=== PATIENT | male | born 1940 | race American Indian/Alaskan Native ===

== ENCOUNTER 2018-04-07 23:34 | Emergency (ER) | payer MEDICARE ==
--- NOTE | 2018-04-08 00:06 | Emergency Department Report ---
HPI - General Chief Complaint: Altered Mental Status Time Seen by Provider: 04/08/18 00:00 - HPI HPI: 77-year-old male presents to the emergency department by EMS for some altered mental status or possibly intoxication. The patient does appear altered but is arousable and admits to drinking "a couple of beers." However he is currently a poor historian. There is some report that the patient appeared not to be breathing and that he had some low oxygen of about 80 prior to getting supplemental oxygen for EMS. He appears to have some history of diabetes and his blood sugar was 122 in route with EMS. ED Past Medical Hx - Past Medical History Previous Medical History?: No - Surgical History Past Surgical History?: No - Social History Smoking Status: Never Smoker Substance Use Type: Alcohol - Medications Home Medications: Home Medications Medication Instructions Recorded Confirmed Last Taken Type No Known Home Medications [No 04/08/18 04/08/18 Unknown History Reported Home Medications] ED Review of Systems ROS: Stated complaint: LILY Other details as noted in HPI Comment: Unobtainable due to pts medical conditions Physical Exam - Physical Exam Vital Signs: Vital Signs 04/07/18 04/07/18 04/07/18 23:43 23:44 23:46 Temperature Pulse Rate 83 82 79 Respiratory 26 H 14 18 Rate Blood Pressure 108/56 Blood Pressure [Left] O2 Sat by Pulse 90 90 97 Oximetry 04/07/18 04/07/18 04/07/18 23:47 23:48 23:50 Temperature 97.8 F Pulse Rate 79 79 77 Respiratory 10 L 13 15 Rate Blood Pressure 108/56 108/56 Blood Pressure 108/56 [Left] O2 Sat by Pulse 97 97 97 Oximetry 04/07/18 23:53 Temperature Pulse Rate Respiratory 20 Rate Blood Pressure Blood Pressure [Left] O2 Sat by Pulse 97 Oximetry Physical Exam: GENERAL: The patient is well-developed well-nourished. HENT: Normocephalic. Atraumatic. Patient has moist mucous membranes. EYES: Extraocular motions are intact. Pupils equal reactive to light bilaterally. NECK: Supple. Trachea is midline. CHEST/LUNGS: Clear to auscultation. There is no respiratory distress noted. HEART/CARDIOVASCULAR: Regular. There is no tachycardia. There is no murmur. ABDOMEN: Abdomen is soft, nontender. Patient has normal bowel sounds. There is no abdominal distention. SKIN: Skin is warm and dry. NEURO: The patient is awake, alert but does appear intoxicated. The patient is cooperative. The patient has no focal neurologic deficits. The patient has normal speech. MUSCULOSKELETAL: There is no tenderness or deformity. There is no limitation range of motion. There is no evidence of acute injury. ED Course Vital Signs 04/07/18 04/07/18 04/07/18 23:43 23:44 23:46 Temperature Pulse Rate 83 82 79 Respiratory 26 H 14 18 Rate Blood Pressure 108/56 Blood Pressure [Left] O2 Sat by Pulse 90 90 97 Oximetry 04/07/18 04/07/18 04/07/18 23:47 23:48 23:50 Temperature 97.8 F Pulse Rate 79 79 77 Respiratory 10 L 13 15 Rate Blood Pressure 108/56 108/56 Blood Pressure 108/56 [Left] O2 Sat by Pulse 97 97 97 Oximetry 04/07/18 23:53 Temperature Pulse Rate Respiratory 20 Rate Blood Pressure Blood Pressure [Left] O2 Sat by Pulse 97 Oximetry ED Medical Decision Making - Lab Data Result diagrams: 04/08/18 00:16 04/08/18 00:16 - EKG Data -: EKG Interpreted by Me EKG shows normal: sinus rhythm, axis, intervals, QRS complexes, ST-T waves Rate: normal - EKG Data When compared to previous EKG there are: previous EKG unavailable Interpretation: normal EKG - Radiology Data Radiology results: report reviewed CT of the head does not show any acute intracranial process including no ischemia, shift, mass, bleeding or skull fracture. - Medical Decision Making This 77-year-old patient presented after he appeared unresponsive with possibly some breathing issues but overall he was very intoxicated secondary to alcohol abuse with a blood level of 0.31. I reevaluated and monitored this patient throughout my entire shift and the patient remained awake and oriented, however the patient had a Pelayo catheter placed at the beginning of his visit without much complaint. Overall he appears to have at least 1700 mL of urine. Most of his labs were mostly unremarkable except for the blood alcohol level, positive benzodiazepines on the urine drug screen and possibly some signs of mild dehydration. In the morning, the patient's daughter came to bedside and stated her concern for the fact that the patient continuously abuses alcohol and that he has had an overall decline in his health and mentation. I spoke with the daughter and told her that I would give him an evaluation from [facility] but that if the patient does not want help or detox and we cannot make him do so and he has not a criteria for 1012 or 2012. I left my shift after presenting the patient to my colleague for continued monitoring and with the patient be set up for an evaluation by [facility]. Looking at the notes now, it appears that the patient was seen by [facility] but refuses detox help. He was awake and alert and not intoxicated when his daughter came to get him in late afternoon early evening. Critical Care Time: No Critical care attestation.: If time is entered above; I have spent that time in minutes in the direct care of this critically ill patient, excluding procedure time. ED Disposition Clinical Impression: Alcohol abuse Alcohol intoxication Qualifiers: Complication of substance-induced condition: uncomplicated Qualified Code(s): F10.920 - Alcohol use, unspecified with intoxication, uncomplicated Disposition: DC-01 TO HOME OR SELFCARE Is pt being admited?: No Condition: Stable Instructions: Alcohol Intoxication (ED), Abuse of Alcohol (ED) Additional Instructions: Please try and quit drinking. I have given him some referrals to help with your addictions. Return to the emergency Department with any worsening of your symptoms or any acute distress. Referrals: [facility] [Outside] - 3-5 Days [facility] [Outside] - 3-5 Days Time of Disposition: 06:35
[2018-04-08 00:50] LABS: Basophils % (Auto) 0.5 % (0.0-1.8); Eosinophils # (Auto) 0.1 K/mm3 (0.0-0.4); Eosinophils % (Auto) 0.7 % (0.0-4.3); Hematocrit 33.6 % (35.5-45.6); Hemoglobin 10.7 gm/dl (11.8-15.2); Lymphocytes # (Auto) 2.8 K/mm3 (1.2-5.4); Lymphocytes % (Auto) 36.2 % (13.4-35.0); Mean Corpuscular HGB Conc 32 % (32-34); Mean Corpuscular Hemoglobin 32 pg (28-32); Mean Corpuscular Volume 101 fl (84-94); Monocytes # (Auto) 0.5 K/mm3 (0.0-0.8); Monocytes % (Auto) 5.8 % (0.0-7.3); Platelet Count 356 K/mm3 (140-440); Red Blood Count 3.34 M/mm3 (3.65-5.03)
[2018-04-08 01:01] LABS: Amorphous Crystals,Urine 1+; Bilirubin,Urine NEG (Negative); Blood,Urine NEG (Negative); Color,Urine Yellow (Yellow); Hyaline Casts,Urine 14 /LPF; Mucus,Urine FEW /HPF; Protein,Urine <15 mg/dL mg/dL (Negative); RBC,Urine < 1.0 /HPF (0.0-6.0); Urobilinogen,Urine < 2.0 mg/dL (<2.0)
[2018-04-08 01:08] LABS: Alanine Aminotransferase 15 units/L (7-56); Albumin 3.1 g/dL (3.9-5); BUN/Creatinine Ratio 8; Blood Urea Nitrogen 7 mg/dL (9-20); Calcium 7.9 mg/dL (8.4-10.2); Hemolysis Index 3
[2018-04-08 01:08] LABS: Amphetamine Screen,Urine PRESUMPTIVE NEGATIVE; Cannabinoid Screen,Urine PRESUMPTIVE NEGATIVE; Cocaine Screen,Urine PRESUMPTIVE NEGATIVE; Methadone Screen,Urine PRESUMPTIVE NEGATIVE; Opiate Screen,Urine PRESUMPTIVE NEGATIVE
[2018-04-08 01:21] LABS: Benzodiazepines Screen,Urine PRESUMPTIVE POSITIVE
[2018-04-08] MEDS: 1: FOLVITE 1 MG, INFUVITE 10 ML, VITAMIN B-1 100 MG in NACL 0.9% 1000 ML 988.8 ML 2: NA IV SCH ×3 (02:54→18:56)
[2018-04-08] MEDS ORDERED: TYLENOL ONE (11:41)
[2018-04-08] MEDS ORDERED: TYLENOL PO PRN (11:57)
[2018-04-08] MEDS ORDERED: ATIVAN PO ONE (14:59)
[2018-04-08 19:18] VITALS: BP 152/75
--- NOTE | 2018-04-11 14:22 | XRay Report ---
FINAL REPORT PROCEDURE: XR CHEST 1V AP TECHNIQUE: Chest radiograph anteroposterior view. CPT 42177 HISTORY: SOB COMPARISON: No prior studies are available for comparison. FINDINGS: Heart: Normal. Mediastinum/Vessels: Normal. Lungs/Pleural space: There are no infiltrates, effusions or pneumothoraces.. Bony thorax: No acute osseous abnormality. Life support devices: None. IMPRESSION: No acute cardiopulmonary abnormality.
--- NOTE | 2018-04-11 14:23 | Cat Scan Report ---
FINAL REPORT PROCEDURE: CT HEAD/BRAIN WO CON TECHNIQUE: Computerized tomography of the head was performed without contrast material. HISTORY: AMS COMPARISON: No prior studies are available for comparison. FINDINGS: Skull and scalp: Normal. Paranasal sinuses: Normal. Ventricles and subarachnoid spaces: There is moderate central and cortical atrophy. There is no hydrocephalus.. Cerebrum: No evidence of hemorrhage, acute infarction or mass. There is chronic deep white matter ischemic gliosis. Cerebellum and brainstem: No evidence of hemorrhage, acute infarction or mass. Vasculature: Normal. Comments: None. IMPRESSION: There is no hemorrhage, edema, mass, mass effect or midline shift.
== END 2018-04-08 19:19 | disposition home or self-care (01) ==
LOC: ED 23:34
DX: F10.10 Alcohol abuse, uncomplicated (principal)
CPT/HCPCS: 36415; 51702; 70450; 71045; 80053; 80307; 81001; 83880; 84443; 84484; 85025; 93005; 93010; 96365; 96366; 99285; G0480; J3411; J7030; 80320

== ENCOUNTER 2018-04-15 17:34 | Emergency (ER) | payer MEDICARE ==
[2018-04-15] MEDS ORDERED: ASPIRIN ONE (18:14)
[2018-04-15] MEDS ORDERED: ASPIRIN PO ONE (18:15)
[2018-04-15 18:49] LABS: Basophils # (Auto) 0.1 K/mm3 (0.0-0.1); Basophils % (Auto) 0.8 % (0.0-1.8); Eosinophils # (Auto) 0.1 K/mm3 (0.0-0.4); Eosinophils % (Auto) 1.4 % (0.0-4.3); Hematocrit 34.7 % (35.5-45.6); Lymphocytes # (Auto) 2.5 K/mm3 (1.2-5.4); Lymphocytes % (Auto) 32.8 % (13.4-35.0); Mean Corpuscular HGB Conc 32 % (32-34); Mean Corpuscular Hemoglobin 32 pg (28-32); Mean Corpuscular Volume 101 fl (84-94); Monocytes # (Auto) 0.7 K/mm3 (0.0-0.8); Monocytes % (Auto) 8.4 % (0.0-7.3); Platelet Count 298 K/mm3 (140-440); Red Blood Count 3.44 M/mm3 (3.65-5.03); Red Cell Distribution Width 16.8 % (13.2-15.2)
[2018-04-15 19:06] LABS: BUN/Creatinine Ratio 8; Blood Urea Nitrogen 7 mg/dL (9-20); Calcium 8.3 mg/dL (8.4-10.2); Hemolysis Index 7
--- NOTE | 2018-04-15 21:33 | Emergency Department Report ---
HPI - General Chief Complaint: Chest Pain Time Seen by Provider: 04/15/18 21:19 - HPI HPI: Room 26 The patient is a 77-year-old male presenting with a chief complaint of diarrhea and chest pain. The patient states for one week she has had frequent diarrhea with lower abdominal pain. The patient states he uses food and drinks water and it feels as though food goes straight through him. The patient states this morning he developed dull substernal chest pain that was intermittent. The patient states his chest pain is associated with some shortness of breath, nausea and diaphoresis. Patient denies vomiting. Patient denies any recent antibiotic use or fever. The patient states his chest pain has subsided. The patient states he had a cardiac catheterization last year at [facility] the revealed clean coronary arteries Location: Chest, gastrointestinal system Duration: [See above] Quality: Dull Severity: Moderate Modifying factors: [see above] Context: [see above] Mode of transportation: [not driving] ED Past Medical Hx - Past Medical History Hx Hypertension: Yes Hx CVA: Yes Hx Congestive Heart Failure: Yes Hx Diabetes: Yes - Surgical History Additional Surgical History: Left hand surgery - Family History Family history: no significant - Social History Smoking Status: Never Smoker Substance Use Type: None (denies illicit drug use), Alcohol (2 beers daily) - Medications Home Medications: Home Medications Medication Instructions Recorded Confirmed Last Taken Type Ciprofloxacin HCl [Ciprofloxacin 500 mg PO BID #14 tablet 04/16/18 Unknown Rx TAB] Diphenoxylate HCl/Atropine 2 each PO QID PRN #20 tablet 04/16/18 Unknown Rx [Lomotil 2.5-0.025 mg Tablet] HYDROcodone/APAP 5-325 [Chauncey 1 each PO Q6HR PRN #14 tablet 04/16/18 Unknown Rx 5/325] metroNIDAZOLE [Flagyl] 500 mg PO Q8HR #21 tablet 04/16/18 Unknown Rx ED Review of Systems ROS: Stated complaint: GENERAL PAIN Other details as noted in HPI Constitutional: diaphoresis Eyes: denies: eye pain ENT: denies: throat pain Respiratory: shortness of breath Cardiovascular: chest pain Gastrointestinal: abdominal pain, nausea, diarrhea. denies: vomiting Genitourinary: denies: dysuria Musculoskeletal: denies: back pain Neurological: denies: headache Physical Exam - Physical Exam Vital Signs: Vital Signs 04/15/18 18:05 Temperature 98.6 F Pulse Rate 104 H Respiratory 22 Rate Blood Pressure 119/77 O2 Sat by Pulse 98 Oximetry Physical Exam: GENERAL: The patient is well-developed well-nourished sitting on stretcher not appearing to be in acute distress. [] HEENT: Normocephalic. Atraumatic. Extraocular motions are intact. Patient has moist mucous membranes. NECK: Supple. Trachea midline CHEST/LUNGS: Clear to auscultation. There is no respiratory distress noted. HEART/CARDIOVASCULAR: Regular. There is no tachycardia. There is no gallop rub or murmur. ABDOMEN: Abdomen is soft, with mild discomfort to palpation in suprapubic and right lower quadrant. Patient has normal bowel sounds. There is no abdominal distention. SKIN: There is no rash. There is no edema. There is no diaphoresis. NEURO: The patient is awake, alert, and oriented. The patient is cooperative. The patient has normal speech MUSCULOSKELETAL: There is no evidence of acute injury. ED Course Vital Signs 04/15/18 18:05 Temperature 98.6 F Pulse Rate 104 H Respiratory 22 Rate Blood Pressure 119/77 O2 Sat by Pulse 98 Oximetry ED Medical Decision Making - Lab Data Result diagrams: 04/15/18 18:34 04/15/18 18:34 - EKG Data -: EKG Interpreted by Md EKG shows normal: sinus rhythm Rate: normal - EKG Data When compared to previous EKG there are: no significant change Interpretation: unchanged when compared t (04/08/2018) - Radiology Data Radiology results: report reviewed (CT chest, CT abdomen and pelvis), image reviewed (CT chest, CT abdomen and pelvis) [address] [address] Cat Scan Report Signed Patient: LOY MONROE MR#: [id number] : 1940 Acct:[id number] Age/Sex: 77 / M ADM Date: 04/15/18 Loc: ED Attending Dr: Ordering Physician: KORI GOMEZ MD Date of Service: 04/15/18 Procedure(s): CT angio chest Accession Number(s): [id number] cc: KORI GOMEZ MD FINAL REPORT EXAM: CT ANGIO CHEST HISTORY: chest pain TECHNIQUE: A CT angiogram was performed following the intravenous injection of iodinated contrast. Sagittal and coronal MIP reconstructions were reviewed. FINDINGS: There is no evidence of pulmonary embolus or aortic dissection. The thoracic aorta is normal in caliber. The heart size is normal. There are coronary artery calcifications. Pericardial fluid is not seen. There is a large hiatal hernia. The lungs otherwise reveal patchy reticular nodular densities particularly in both upper lobes right side worse than left side. There additional areas in both lower lobes as well. Whether these are on an acute or chronic basis is uncertain. Pleural fluid is not seen. The lungs are not congested. The skeletal structures reveal multilevel disc degeneration in the dorsal spine with prominent spurring suggesting the possibility of ankylosing spondylitis. There is no evidence of fracture. IMPRESSION: No evidence of pulmonary embolus or aortic dissection. Nonspecific patchy reticulonodular densities in both lungs as described. As to whether these findings are on an acute or chronic basis is uncertain. Large hiatal hernia. Changes in the dorsal spine suggesting the possibility of ankylosing spondylitis. Transcribed By: RB Dictated By: ROD LOZOYA MD Electronically Authenticated By: ROD LOZOYA MD Signed Date/Time: 04/16/1827 DD/ TD/TT: 04/16/1827 [facility] [address] [place] [address] Cat Scan Report Signed Patient: LOY MONROE MR#: [id number] : 1940 Acct:[id number] Age/Sex: 77 / M ADM Date: 04/15/18 Loc: ED Attending Dr: Ordering Physician: KORI GOMEZ MD Date of Service: 04/15/18 Procedure(s): CT abdomen pelvis w con Accession Number(s): [id number] cc: KORI GOMEZ MD FINAL REPORT EXAM: CT ABDOMEN PELVIS W CON HISTORY: lower abdominal pain, diarrhea TECHNIQUE: Routine axial imaging was obtained of the abdomen and pelvis following the intravenous injection of iodinated contrast. Sagittal and coronal reconstructions were reviewed. FINDINGS: The lung bases reveal patchy interstitial reticulonodular disease in both lower lobes. Pleural fluid is not identified. There is a large hiatal hernia. The liver is normal size. There is a 17.9 mm low-density focus along the dome of the liver. This may represent a small hemangioma. There is benign calcification in the right hepatic lobe also. The gallbladder is normal size reveals multiple dependent calcified stones. There are no secondary signs of acute cholecystitis. The pancreas, spleen, and adrenal glands appear normal. The kidneys enhance normally. There is no evidence of hydronephrosis. The abdominal aorta is normal in caliber. The bowel loops are normal in caliber. The appendix is not enlarged. There is no evidence of free fluid or adenopathy. In the pelvis prostate gland and bladder appear normal. The skeletal structures reveal multilevel disc degeneration in the lumbar spine with endplate spurring. There also partial ankylosis of the SI joints. IMPRESSION: No acute process in the abdomen and pelvis. 17.9 mm low-density focus along the dome of the liver. This may represent a hemangioma. Ultrasonography might be helpful for further evaluation. Gallstones. No secondary signs of acute cholecystitis. Multilevel disc degeneration in the lumbar spine with endplate spurring. Partial ankylosis of the SI joints noted also appear Transcribed By: RB Dictated By: ROD LOZOYA MD Electronically Authenticated By: ROD LOZOYA MD Signed Date/Time: 04/16/1832 DD/ TD/TT: 04/16/1832 - Medical Decision Making Records from [facility] obtained. They reveal the patient had a cardiac catheterization performed 06/21/2017 which revealed "conclusions: Normal coronary arteries" - Differential Diagnosis ACS, PE, GERD, pericarditis, enteritis, partial bowel obstruction Critical care attestation.: If time is entered above; I have spent that time in minutes in the direct care of this critically ill patient, excluding procedure time. ED Disposition Clinical Impression: Diarrhea, Abdominal pain, Chest pain Disposition: DC-01 TO HOME OR SELFCARE Is pt being admited?: No Does the pt Need Aspirin: No Condition: Stable Instructions: Chest Pain (ED) Additional Instructions: Return to the emergency department immediately should you develop worsening symptoms, fever, inability to tolerate food or liquid or any other concerns. Prescriptions: Ciprofloxacin HCl [Ciprofloxacin TAB] 500 mg PO BID #14 tablet Diphenoxylate HCl/Atropine [Lomotil 2.5-0.025 mg Tablet] 2 each PO QID PRN #20 tablet PRN Reason: Diarrhea HYDROcodone/APAP 5-325 [Chauncey 5/325] 1 each PO Q6HR PRN #14 tablet PRN Reason: Pain metroNIDAZOLE [Flagyl] 500 mg PO Q8HR #21 tablet Referrals: CHRIS CRISOSTOMO MD [Staff Physician] - 3-5 Days (Dr. Crisostomo is a sign designer. Please follow-up with him for further evaluation of the "17.9 mm low density focus along the dome of the liver" seen on your CT scan of the abdomen/pelvis today as well as your abdominal pain and diarrhea) Time of Disposition: 00:46
[2018-04-15 22:23] LABS: Alanine Aminotransferase 14 units/L (7-56); Albumin 3.3 g/dL (3.9-5); Lipase 12 units/L (13-60)
[2018-04-15 22:28] LABS: Bilirubin,Direct < 0.2 mg/dL (0-0.2)
[2018-04-15 23:00] VITALS: BP 179/90
--- NOTE | 2018-04-16 00:31 | Cat Scan Report ---
FINAL REPORT EXAM: CT ANGIO CHEST HISTORY: chest pain TECHNIQUE: A CT angiogram was performed following the intravenous injection of iodinated contrast. Sagittal and coronal MIP reconstructions were reviewed. FINDINGS: There is no evidence of pulmonary embolus or aortic dissection. The thoracic aorta is normal in caliber. The heart size is normal. There are coronary artery calcifications. Pericardial fluid is not seen. There is a large hiatal hernia. The lungs otherwise reveal patchy reticular nodular densities particularly in both upper lobes right side worse than left side. There additional areas in both lower lobes as well. Whether these are on an acute or chronic basis is uncertain. Pleural fluid is not seen. The lungs are not congested. The skeletal structures reveal multilevel disc degeneration in the dorsal spine with prominent spurring suggesting the possibility of ankylosing spondylitis. There is no evidence of fracture. IMPRESSION: No evidence of pulmonary embolus or aortic dissection. Nonspecific patchy reticulonodular densities in both lungs as described. As to whether these findings are on an acute or chronic basis is uncertain. Large hiatal hernia. Changes in the dorsal spine suggesting the possibility of ankylosing spondylitis.
--- NOTE | 2018-04-16 00:37 | Cat Scan Report ---
FINAL REPORT EXAM: CT ABDOMEN PELVIS W CON HISTORY: lower abdominal pain, diarrhea TECHNIQUE: Routine axial imaging was obtained of the abdomen and pelvis following the intravenous injection of iodinated contrast. Sagittal and coronal reconstructions were reviewed. FINDINGS: The lung bases reveal patchy interstitial reticulonodular disease in both lower lobes. Pleural fluid is not identified. There is a large hiatal hernia. The liver is normal size. There is a 17.9 mm low-density focus along the dome of the liver. This may represent a small hemangioma. There is benign calcification in the right hepatic lobe also. The gallbladder is normal size reveals multiple dependent calcified stones. There are no secondary signs of acute cholecystitis. The pancreas, spleen, and adrenal glands appear normal. The kidneys enhance normally. There is no evidence of hydronephrosis. The abdominal aorta is normal in caliber. The bowel loops are normal in caliber. The appendix is not enlarged. There is no evidence of free fluid or adenopathy. In the pelvis prostate gland and bladder appear normal. The skeletal structures reveal multilevel disc degeneration in the lumbar spine with endplate spurring. There also partial ankylosis of the SI joints. IMPRESSION: No acute process in the abdomen and pelvis. 17.9 mm low-density focus along the dome of the liver. This may represent a hemangioma. Ultrasonography might be helpful for further evaluation. Gallstones. No secondary signs of acute cholecystitis. Multilevel disc degeneration in the lumbar spine with endplate spurring. Partial ankylosis of the SI joints noted also appear
== END 2018-04-16 05:42 | disposition home or self-care (01) ==
LOC: ED 17:34
DX: R07.9 Chest pain, unspecified (principal); R10.30 Lower abdominal pain, unspecified; I10 Essential (primary) hypertension; I50.9 Heart failure, unspecified; E11.9 Type 2 diabetes mellitus without complications; Z86.73 Personal history of transient ischemic attack (TIA), and cerebral infarction without residual deficits
CPT/HCPCS: 36415; 71275; 74177; 80048; 80074; 83690; 84484; 85025; 93005; 93010; 99285; Q9967